=== PATIENT | female | born 1975 | race Two or more races ===

== ENCOUNTER 2023-08-07 13:12 | Outpatient (CLI) | payer OTHER, SELFPAY ==
--- NOTE | 2023-08-07 13:17 | XR_ITS ---
FINAL REPORT CLINICAL HISTORY: right ankle pain, swelling COMPARISON: None FINDINGS: RIGHT ANKLE: Three views of the right ankle were obtained. There is no acute fracture or dislocation. The joint spaces and mortise are intact. There is a plantar calcaneal spur. There is no soft tissue abnormality. IMPRESSION: No acute bony abnormality. Reviewed, Interpreted and Dictated by Anmol Taylor III, MD Transcribed by Khadra Rice Authenticated and [facility]
== END 2023-08-07 23:59 ==
LOC: RAD 13:15
PROVIDERS: Visit Provider Orthopaedic Surgery
DX: M25.571 Pain in right ankle and joints of right foot (principal)
CPT/HCPCS: 73610

== ENCOUNTER 2024-10-05 12:29 | Outpatient (CLI) | payer OTHER, SELFPAY ==
[2024-10-05 14:07] LABS: Basophils # 0.1 K/mm3 (0-0.2); Basophils % 0.7 % (0.1-2.0); Eosinophils # 0.3 K/mm3 (0.0-0.4); Eosinophils % 2.1 % (0.1-12.0); Hemoglobin 14.6 g/dL (12.2-16.2); Lymphocytes # 4.9 K/mm3 (0.7-4.5); Lymphocytes % 39.9 % (10-50); Mean Corpuscular HGB Conc 34.8 g/dL (31.8-35.4); Mean Corpuscular Hemoglobin 30.4 pg (27.0-31.2); Mean Corpuscular Volume 87.5 fl (81-99); Mean Platelet Volume 10.4 fl (7.4-10.4); Monocytes # 0.8 K/mm3 (0.1-1.0); Monocytes % 6.7 % (1.7-9.3); Neutrophils # 6.1 K/mm3 (1.8-7.8); Neutrophils % 50.4 % (37.0-80.0); Platelet Count 346 K/mm3 (142-424); Red Cell Distribution Width 14.6 % (11.5-17.5); White Blood Count 12.2 K/mm3 (4.8-10.8)
[2024-10-05 14:19] LABS: Albumin Level 4.6 g/dl (3.5-5.0); Chloride 101 mmol/L (98-107); Potassium 3.9 mmoL/L (3.5-5.1); Sodium 137 mmol/L (136-145)
[2024-10-05 14:21] LABS: Blood Urea Nitrogen 13 mg/dl (7-17); Estimated Glomerular Filt Rate 76 ml/min (>60); GFR (African American) 92 ML/MIN (>60)
[2024-10-05 14:22] LABS: Alanine Aminotransferase 21 U/L (12-78); Alkaline Phosphatase 68 U/L (38-126); Anion Gap 8.9 mEq/L (5-15); Aspartate Amino Transferase 27 U/L (14-36); Bilirubin,Indirect 0.7 mg/dL (0.0-0.9); Bilirubin,Total 0.7 mg/dl (0.2-1.3); Bilirubin,Unconjugated 0.7 mg/dL (0.0-1.1); Calcium 9.8 mg/dl (8.4-10.2); Carbon Dioxide 31 mmol/L (22.0-30.0); Cholesterol 235 mg/dl (140-200); Glucose 88 mg/dl (74-100); Total Protein,Serum 7.3 g/dl (6.3-8.2); Triglycerides 104 mg/dl (30-150); VLDL Cholesterol 21 mg/dL (0-40)
[2024-10-05 14:23] LABS: Chol/HDL Ratio 3.5 (1-3.5); HDL Cholesterol 67 mg/dl (40-60); Magnesium 1.9 mg/dl (1.6-2.3)
[2024-10-05 14:33] LABS: Direct LDL Cholesterol 136.52 mg/dL (100-129)
[2024-10-05 14:40] LABS: Free T4 (Free Thyroxine) 1.04 ng/dl (0.78-2.19)
[2024-10-05 14:53] LABS: Thyroid Stimulating Hormone 1.55 uIU/mL (0.465-4.68)
== END 2024-10-05 23:59 | disposition home or self-care (01) ==
LOC: RT 12:30
PROVIDERS: Visit Provider Nurse Practitioner Family
DX: R00.2 Palpitations (principal); R94.31 Abnormal electrocardiogram [ECG] [EKG]; R53.83 Other fatigue
CPT/HCPCS: 36415; 80048; 80061; 80076; 83735; 83880; 84439; 84443; 85025; 93270

== ENCOUNTER 2024-10-27 07:06 | Outpatient (CLI) | payer OTHER, SELFPAY ==
--- NOTE | 2024-10-27 | CA_ITS ---
APPROVED REPORT Exam: Exercise Treadmill Technologist: Ninfa Feliz Ht: 5 ft 6 in Wt: 175 lbs BSA: 1.89 m2 HR: 65 bpm BP: 145/82 mmHg Rhythm: NSR Medical History Medical History: HTN, Smoking Medications: Hydrochlorothiazide Allergies: No known Allergies Cardiac Risk Factors: HTN, FHX of CAD, , Smoking Stress Test Details Test: Exercise stress testing was performed using a Ammon protocol. HR Resting HR: 65 bpm Max Heart Rate (APMHR): 170 bpm Max HR Achieved: 148 bpm Target HR (85% APMHR): 145 bpm % of APMHR: 87 Recovery HR: 86 bpm HR response to stress: Normal HR response to stress BP Resting BP: 145.0/82.0 mmHg Max BP: 170.0/85.0 mmHg Recovery BP: 133.0/78.0 mmHg BP response to stress: Normal blood pressure response to stress. ECG Resting ECG: NSR, PVCs Stress EC.[address] depression Arrhythmia: PVCs Clinical Exercise duration: 7.50 min Exercise capacity: 7.1 METs Overall Exercise Capacity for Age: Average Stress ECG Conclusion Pt had dyspnea, no chest pain. Ectopy: occasional PVCs at rest and with exercise. ST changes: < 0.[address] depression. Conclusion: Average exercise capacity. No evidence of ischemia on ECG at peak stress. Myoview images reported separately. Electronically signed by : Razia Mccormick MD 10/30/2024 15:21:19
--- NOTE | 2024-10-27 | CA_ITS ---
APPROVED REPORT EXAM: Comprehensive 2D, Doppler, and color-flow Echocardiogram Senior Clinical Data Coordinator: Yancy Ann RDCS Ht: 5 ft 6 in Wt: 175lbs BSA: 1.89 BP: 116/78 mmHg Indications: CP,PALPS,SOA M-Mode Dimensions RVDd 2.55 cm (0.9-2.6) LA Diam 2.69 cm (1.9-4.0) LVDd 4.59 cm (3.5-5.7) LVDs 3.29 cm (3.5-5.7) IVSd 0.58 cm (0.6-1.1) PWd 0.72 cm (0.6-1.1) EF (Teich) 54.80% FS 28.30% EDV (Teich) 96.80 mL TAPSE 2.95 (<1.7) ESV (Teich) 43.80 mL LV Diastology E Decel Time 140 (160-240 msec) E/A Ratio 1.2 Mitral Valve MV E Max Ray. 78.0 (40-130 cm/s) MV A Velocity 63.0 (40-130 cm/s) E/A Ratio 1.25 MV PHT 41.0 ms Tricuspid Valve TR P. Velocity 218.00 cm/s RAP Estimate 10.00 mmHg RVSP 28.90 mmHg Left Ventricle The left ventricle is normal size. The left ventricular systolic function is normal. The left ventricular ejection fraction is within the normal range. There is normal left ventricular wall thickness. There is normal LV segmental wall motion. The left ventricular diastolic function is normal. LVEF is 55%. Right Ventricle The right ventricle is normal size. The right ventricular systolic function is normal. Atria The left atrium size is normal. The right atrium size is normal. There is no Doppler evidence of interatrial shunt. Aortic Valve Aortic valve opens well. There is no aortic valvular stenosis. No aortic regurgitation is present. Mitral Valve The mitral valve is normal in structure. No evidence of mitral valve stenosis. Trace mitral regurgitation. Tricuspid Valve Tricuspid valve is grossly normal in structure and function. Mild tricuspid regurgitation. RVSP is 20-25 mmHg. Pulmonic Valve The pulmonary valve is normal in structure. Trace pulmonic regurgitation. Great Vessels The aortic root is normal in size. IVC is normal in size and collapses >50% with inspiration. Pericardium There is no pericardial effusion. Other Information Study Quality: Fair Conclusion Normal biventricular systolic function. Mild TR. Electronically signed by : Razia Mccormick MD 10/31/2024 12:34:26
--- NOTE | 2024-10-27 07:00 | NM_ITS ---
APPROVED REPORT Exam: Nuclear Stress Test Indication: htn, hyperlipidemia, tob use, fm hx, c.p., sob, palpitations Patient [facility]Bibiana Key ODILIA RT (R)(N)(M) Ht: 5 ft 6 in Wt: 172 lbs Bra Size: c HR: 68 bpm BP: 144/85 mmHg BSA: 1.88 m2 TID: 1.16 BMI: 27.7 History: htn, hyperlipidemia, tob use, fm hx, c.p., sob, palpitations Procedure: Patient exercised on Ammon protocol 7:50 minutes and sec, resting heart rate 68 bpm, resting blood pressure 144/85 mmHg, with exercise maximum heart rate achived was 147 bpm which is 87 % of the maximum predicted heart rate and blood pressure was 160/88 mmHg. Test was stopped due to leg fatigue. Patient denied any complaint of chest pain. Patient has average exercise capacity, achieved 7.1 METs of workload on treadmill, the blood pressure response to exercise was normal. Cardiac Stress and Resting SPECT Images: Cardiac Stress and Resting SPECT images were obtained using technetium 99m Myoview 30.5 mCi stress and 10.39 mCi at rest. Resting and stress imaging in supine and prone positions demonstrate a small-sized, moderate, predominantly fixed perfusion defect in the basal inferior LV wall. There is a small region of reversibility toward the mid-inferior LV wall. Gated imaging demonstrates low-normal global LV systolic function. LVEF is calculated at 51%. Conclusion: Small-sized, moderate, predominantly fixed perfusion defect in the basal inferior LV wall. There is a small region of reversibility toward the mid-inferior LV wall. Findings are suggestive of partial reversible ischemia. Gated imaging demonstrates low-normal global LV systolic function. LVEF is calculated at 51%. Electronically signed by : Razia Mccormick MD 10/30/2024 15:15:30
[2024-10-27] MEDS: ISOTOPE MYOVIEW (PER STUDY) 1 DOSE IV (09:57)
[2024-10-27] MEDS: SODIUM CHLORIDE 0.9% 10ML SYR (RAD ONLY) 10 ML IV ×2 (09:58)
[2024-10-27 11:35] LABS: Bilirubin,Unconjugated 0.5 mg/dL (0.0-1.1)
[2024-10-27 11:36] LABS: Alanine Aminotransferase 20 U/L (12-78); Alkaline Phosphatase 63 U/L (38-126); Aspartate Amino Transferase 27 U/L (14-36); Bilirubin,Indirect 0.4 mg/dL (0.0-0.9); Bilirubin,Total 0.4 mg/dl (0.2-1.3); Chol/HDL Ratio 2.1 (1-3.5); Cholesterol 139 mg/dl (140-200); HDL Cholesterol 67 mg/dl (40-60); Total Protein,Serum 6.9 g/dl (6.3-8.2); Triglycerides 65 mg/dl (30-150); VLDL Cholesterol 13 mg/dL (0-40)
[2024-10-27 11:47] LABS: Direct LDL Cholesterol 57.98 mg/dL (100-129)
== END 2024-10-27 23:59 | disposition home or self-care (01) ==
LOC: RAD 07:07
PROVIDERS: PCP Family Medicine; Visit Provider Nurse Practitioner Family
DX: R00.2 Palpitations (principal); R94.31 Abnormal electrocardiogram [ECG] [EKG]; R53.83 Other fatigue; E78.5 Hyperlipidemia, unspecified
CPT/HCPCS: 78452; 80061; 80076; 93017; 93018; 93306; A9502

== ENCOUNTER 2024-11-15 08:49 | Day surgery (SDC) | payer OTHER, SELFPAY ==
[2024-11-15] VITALS (9 sets, daily range): BP systolic 102–132; BP diastolic 63–90; PULSE 58–87; RESP 18–20; O2SAT 90–98; BMI 28.4
--- NOTE | 2024-11-15 07:04 | IR_ITS ---
APPROVED REPORT Patient Location: Outpatient PROCEDURES Left heart catheterization Left ventriculogram Selective coronary angiogram INDICATION Abnormal Myoview, Angina pectoris, Informed consent was obtained prior to the procedure. COMPLICATIONS NONE Estimated Blood Loss: LESS THAN 10 ML TECHNIQUE One percent lidocaine used to anesthetize the right anterior aspect of the wrist. The right radial artery was accessed via the Seldinger technique. A 6 [place] sheath was placed in the right radial artery. 2.5 mg of Verapamil, 800 mcg of nitroglycerin, 1mg Lidocaine and 5000 U Heparin were given through the arterial sheath. The 6 [place] JL 3 catheter was also used to perform left heart catheterization, left ventriculogram and selective coronary angiogram. At the end of the procedure the sheath was removed good hemostasis was achieved using Traclet band, patient was transferred to the postop holding area in stable condition. ANGIOGRAPHIC RESULTS The left main artery Normal The left anterior descending artery Normal The circumflex artery Normal The right coronary artery Dominant normal The MESSINA ventriculogram reveals Normal 65% The left ventricular end-diastolic pressure Elevated at 20 mmHg IMPRESSION Normal coronary arteries Normal ejection fraction Elevated LVEDP PLAN 1. Treatment of diastolic dysfunction 2. Consider sleep study Electronically signed by : Leo Carrera MD 11/15/2024 13:53:53
[2024-11-15 09:13] LABS: Basophils # 0.1 K/mm3 (0-0.2); Basophils % 0.9 % (0.1-2.0); Eosinophils # 0.3 Kmm3 (0.0-0.4); Eosinophils % 2.4 % (0.1-12.0); Hematocrit 43.8 % (37.0-47.0); Hemoglobin 15.1 g/dL (12.2-16.2); Lymphocytes % 34.1 % (10-50); Mean Corpuscular HGB Conc 34.5 g/dL (31.8-35.4); Mean Corpuscular Hemoglobin 30.1 pg (27.0-31.2); Mean Corpuscular Volume 87.4 fl (81-99); Mean Platelet Volume 9.8 fl (7.4-10.4); Monocytes # 0.8 K/mm3 (0.1-1.0); Monocytes % 6.5 % (1.7-9.3); Neutrophils # 6.5 K/mm3 (1.8-7.8); Neutrophils % 55.9 % (37.0-80.0); Nucleated Red Blood Cells # 0 10^3/uL; Nucleated Red Blood Cells % 0 %; Platelet Count 313 K/mm3 (142-424); Red Blood Count 5.01 M/mm3 (4.20-5.40); Red Cell Distribution Width 14.1 % (11.5-17.5); Red Cell Distribution Width-SD 44.9 fL; White Blood Count 11.6 K/mm3 (4.8-10.8)
[2024-11-15 09:19] LABS: Chloride 105 mmol/L (98-107)
[2024-11-15 09:20] LABS: Potassium 3.7 mmoL/L (3.5-5.1); Sodium 140 mmol/L (136-145)
[2024-11-15 09:23] LABS: Anion Gap 10.7 mEq/L (5-15); Blood Urea Nitrogen 13 mg/dl (7-17); Calcium 10.1 mg/dl (8.4-10.2); Carbon Dioxide 28 mmol/L (22.0-30.0); Creatinine Clearance Estimated 106 mL/min (50-200); Estimated Glomerular Filt Rate 76 ml/min (>60); GFR (African American) 92 ML/MIN (>60); Glucose 96 mg/dl (74-100)
[2024-11-15] MEDS: HEPARIN 1,000 UNITS/500ML NS (CATH LAB) 3000 UNIT IV (13:00)
[2024-11-15] MEDS: VERAPAMIL 2.5MG/ML 2ML VIAL 2.5 MG IV (13:00)
[2024-11-15] MEDS: LIDOCAINE 1% 10ML MDV 10 ML IJ (13:00)
[2024-11-15] MEDS: 0.9 % SODIUM CHLORIDE 500 ML 25 ML IV (13:00)
[2024-11-15] MEDS: diphenhydrAMINE 50MG/ML VIAL 50 MG IV (13:00)
[2024-11-15] MEDS: HEPARIN 1,000 UNITS/ML 10ML VIAL (CATH LAB) 5000 UNIT IV (13:00)
[2024-11-15] MEDS: NITROGLYCERIN 800MCG/8ML SYR (CATH LAB) 800 MCG IA (13:00)
[2024-11-15] MEDS: MIDAZOLAM HCL 1MG/ML 5ML VIAL 1 MG IV (13:32)
[2024-11-15] MEDS: FENTANYL 100MCG/2ML VIAL 50 MCG IV (13:32)
--- NOTE | 2024-11-15 14:13 | SUR.PHASEII ---
pt's at bedside.
[2024-11-15] MEDS: IOPAMIDOL-370 (76%);100ML BOTTLE 50 ML IV (16:20)
== END 2024-11-15 15:28 | disposition home or self-care (01) ==
LOC: CATHLAB 08:51
PROVIDERS: PCP Family Medicine; Visit Provider Internal Medicine
DX: I20.9 Angina pectoris, unspecified (principal); E78.5 Hyperlipidemia, unspecified; I47.10 Supraventricular tachycardia, unspecified; I49.3 Ventricular premature depolarization; I49.1 Atrial premature depolarization; F17.200 Nicotine dependence, unspecified, uncomplicated; R06.02 Shortness of breath; I10 Essential (primary) hypertension; R53.83 Other fatigue; R60.0 Localized edema; Z82.49 Family history of ischemic heart disease and other diseases of the circulatory system; Z79.899 Other long term (current) drug therapy
CPT/HCPCS: 80048; 85025; 93452; 99152; C1725; C1769; J1200; J1644; J3010; J7040; Q9967